=== PATIENT | male | born 1965 | race African-American/Black ===

== ENCOUNTER 2016-03-30 16:31 | Inpatient (IN) | payer OTHER ==
[~2016-03-30] VITALS: Ht 200.7 cm; Wt 101.8 kg
[~2016-03-30 16:31] MED LIST: AMITRIPTYLINE H25 MG PO; BUTALB-APAP-CA1 EACH PO; CARVEDILOL6.25 MG PO; DOCUSATE SODIU100 MG PO; DUONEB 2.5-0.5 M3 ML AEROSOL; GLUCOPHAGE500 MG PO; LANTUS 10100 UNITS/ SC; LEVEMIR100 UNIT/2 SC; LISINOPRIL5 MG PO; NOVOLIN N100 UNITS/ SC; NOVOLIN,HU100 UNITS1 SC; NOVOLOG 10100 UNITS/ SC; NOVOLOG PE100 UNITS/ SC; ONE-A-DAY ESSE1 EAC1 PO; OXYCODONE HCL5 MG PO; PRAVASTATIN SOD40 MG PO; ST. JOSEPH ASPI81 MG PO; TYLENOL EXTRA500 MG PO; Zeasorb Antifungal T TP
[2016-03-30 17:42] LABS: HEMATOCRIT 41.4 % (38.0-50.0); MCH 29.8 PG (29.0-34.0); MCHC 33.6 G/DL (30.0-36.0); MEAN PLAT.VOLUME 10.9 uM^3 (9.0-12.4); RBC DIS.WIDTH-SD 41.7 % (39-53); RED BLOOD COUNT 4.66 M/uL (4.00-5.50); WHITE BLOOD COUNT 7.5 K/uL (4.1-10.2)
[2016-03-30 17:43] LABS: MCV 88.8 FL (86-99); PLATELET COUNT 223 K/uL (156-360)
[2016-03-30 17:59] LABS: TROP-I INTERPRETATION NEGATIVE; TROPONIN-I 0.02 ng/mL (0.0-0.30)
[2016-03-30 18:05] LABS: CHLORIDE 106 mEq/L (99-109); POTASSIUM 4.7 mEq/L (3.7-5.4); SODIUM 141 mEq/L (136-147)
[2016-03-30 18:07] LABS: GLUCOSE 153 mg/dL (70-99)
[2016-03-30 18:08] LABS: ANION GAP 14 MEQ/L (2-14)
[2016-03-30 18:11] LABS: GFR ESTIMATE (CALCULATED) > 59 mL/min/
[2016-03-30 18:12] LABS: UREA NITROGEN (BUN) 17 mg/dL (9-23)
[2016-03-30] MEDS ORDERED: OMEPRAZOLE40 M1 PO (20:04)
[2016-03-30] MEDS ORDERED: MAALOX ADVANCE355 ML PO (20:05)
[2016-03-30] MEDS ORDERED: TUSSIN CHE100 MG/5 M PO (20:05)
[2016-03-30] MEDS ORDERED: ULTRAM50 MG PO (20:06)
[2016-03-30] MEDS ORDERED: GLUCOPHAGE1000 MG PO (20:07)
[2016-03-30] MEDS ORDERED: TANZEUM30 MG/0.5 SC (20:07)
[2016-03-30] MEDS ORDERED: ORAZINC220 MG PO (20:08)
[2016-03-30] MEDS ORDERED: C-500500 M1 PO (20:09)
[2016-03-30] MEDS ORDERED: ENTRESTO 24 MG1 EACH PO (20:09)
[2016-03-30] MEDS ORDERED: PRAVACHOL40 MG PO (20:10)
[2016-03-30] MEDS ORDERED: NOVOLOG 10100 UNITS/ SC (20:10)
[2016-03-30] MEDS ORDERED: FIORICET,ESG1 TABLET PO (20:11)
[2016-03-30] MEDS ORDERED: LEVEMIR100 UNIT/2 SC (20:13)
[2016-03-30] MEDS ORDERED: LAXATIVE5 M1 PO (20:13)
[2016-03-30] MEDS ORDERED: ASPIR 8181 M1 PO (20:14)
[2016-03-30] MEDS ORDERED: TRAZODONE HCL50 MG PO (20:15)
[2016-03-30] MEDS ORDERED: PAXIL20 MG PO (20:17)
[2016-03-30 23:50] VITALS: BP 111/82
[2016-03-31 02:23] LABS: ADD MIUA? YES; BILIRUBIN SMALL; BLOOD TRACE; COLOR DK YELLOW ((YELLOW)); GLUCOSE (STRIP) NEGATIVE; KETONES NEGATIVE; LEUKOCYTES SMALL; NITRITE NEGATIVE; PROTEIN (STRIP) 30
[2016-03-31 02:37] LABS: BACTERIA NONE SEEN; CASTS NONE SEEN /LPF; EPITHELIAL CELLS NONE SEEN; MUCUS NONE SEEN; RED BLOOD CELLS RARE /HPF (0-5); UCUL ADDED? NO; WHITE BLOOD CELLS RARE /HPF (0-5)
[2016-03-31 02:38] LABS: CRYSTALS NONE SEEN
[2016-03-31 02:44] LABS: SPECIFIC GRAVITY 1.071 (1.000-1.030)
[2016-03-31 04:00] VITALS: BP 119/73
[2016-03-31 07:49] VITALS: BP 135/98
[2016-03-31 08:25] LABS: INTERNAL CONTROL VALID? YES
[2016-03-31 08:49] LABS: EOSINOPHIL (%) 2.5 % (0-5); EOSINOPHIL COUNT 0.2 K/uL (0-0.3); HEMATOCRIT 37.7 % (38.0-50.0); IMMATURE GRANULOCYTE (%) 0.1 % (0.0-0.7); MCHC 32.9 G/DL (30.0-36.0); MCV 91.3 FL (86-99); MEAN PLAT.VOLUME 10.7 uM^3 (9.0-12.4); MONOCYTE (%) 11.1 % (3-12); MONOCYTE COUNT 0.8 K/uL (0-0.8); NEUTROPHIL (%) 72.1 % (45-76); NEUTROPHIL COUNT 5.4 K/uL (1.8-6.4); PLATELET COUNT 200 K/uL (156-360); RBC DIS.WIDTH-CV 13.1 % (11.8-14.6); RBC DIS.WIDTH-SD 43.6 % (39-53); RED BLOOD COUNT 4.13 M/uL (4.00-5.50); WHITE BLOOD COUNT 7.6 K/uL (4.1-10.2)
[2016-03-31 10:07] LABS: ANION GAP 11 MEQ/L (2-14); CHLORIDE 106 MEQ/L (99-109); POTASSIUM 4.5 MEQ/L (3.7-5.4); SAMPLE HEMOLYSIS CHECK 0; SAMPLE ICTERIC CHECK 0; SAMPLE LIPEMIA CHECK 0; SODIUM 140 MEQ/L (136-147); TOTAL BILIRUBIN 0.7 MG/DL (0.0-1.0)
[2016-03-31 10:12] LABS: ALKALINE PHOSPHATASE 94 IU/L (3-129); GFR ESTIMATE (CALCULATED) > 59 mL/min/; GLUCOSE 138 mg/dL (70-99); UREA NITROGEN (BUN) 15 mg/dL (9-23)
[2016-03-31 10:59] VITALS: BP 130/91
[2016-03-31 14:59] VITALS: BP 138/88
[2016-03-31 19:42] VITALS: BP 120/89
[2016-03-31 23:13] VITALS: BP 123/87
[2016-04-01 04:00] VITALS: BP 112/77
[2016-04-01 08:31] VITALS: BP 125/82
[2016-04-01 11:55] VITALS: BP 102/67
[2016-04-01 12:36] LABS: HEMATOCRIT 39.9 % (38.0-50.0); MCH 30.3 PG (29.0-34.0); MCHC 33.1 G/DL (30.0-36.0); MCV 91.5 FL (86-99); MEAN PLAT.VOLUME 11.5 uM^3 (9.0-12.4); PLATELET COUNT 234 K/uL (156-360); RBC DIS.WIDTH-CV 13.3 % (11.8-14.6); RBC DIS.WIDTH-SD 44.5 % (39-53); RED BLOOD COUNT 4.36 M/uL (4.00-5.50); WHITE BLOOD COUNT 6.7 K/uL (4.1-10.2)
[2016-04-01 13:02] LABS: ANION GAP 11 MEQ/L (2-14); CHLORIDE 107 MEQ/L (99-109); GFR ESTIMATE (CALCULATED) > 59 mL/min/; GLUCOSE 198 mg/dL (70-99); POTASSIUM 4.8 MEQ/L (3.7-5.4); SAMPLE HEMOLYSIS CHECK 0; SAMPLE ICTERIC CHECK 0; SAMPLE LIPEMIA CHECK 0; SODIUM 138 MEQ/L (136-147); UREA NITROGEN (BUN) 20 mg/dL (9-23)
[2016-04-01 16:10] VITALS: BP 93/65
[2016-04-01 20:00] VITALS: BP 93/74
[2016-04-01 21:21] LABS: POINT-OF-CARE METER ID UU14174225
[2016-04-01 23:30] VITALS: BP 104/66
[2016-04-02 04:00] VITALS: BP 96/59
[2016-04-02 08:12] VITALS: BP 94/62
[2016-04-02 09:20] LABS: POINT-OF-CARE METER ID UU14174225
[2016-04-02 11:17] LABS: HEMATOCRIT 39.2 % (38.0-50.0); MCHC 32.7 G/DL (30.0-36.0); MCV 91.8 FL (86-99); MEAN PLAT.VOLUME 11.1 uM^3 (9.0-12.4); PLATELET COUNT 211 K/uL (156-360); RBC DIS.WIDTH-CV 13.2 % (11.8-14.6); RBC DIS.WIDTH-SD 44.2 % (39-53); RED BLOOD COUNT 4.27 M/uL (4.00-5.50); WHITE BLOOD COUNT 6.8 K/uL (4.1-10.2)
[2016-04-02 12:06] LABS: ANION GAP 12 MEQ/L (2-14); CHLORIDE 109 MEQ/L (99-109); GFR ESTIMATE (CALCULATED) > 59 mL/min/; GLUCOSE 136 mg/dL (70-99); POTASSIUM 4.9 MEQ/L (3.7-5.4); SAMPLE HEMOLYSIS CHECK 0; SAMPLE ICTERIC CHECK 0; SAMPLE LIPEMIA CHECK 0; SODIUM 142 MEQ/L (136-147); UREA NITROGEN (BUN) 24 mg/dL (9-23)
[2016-04-02 12:49] VITALS: BP 96/63
[2016-04-02 16:00] VITALS: BP 108/68
[2016-04-02 20:21] VITALS: BP 109/65
[2016-04-02 21:46] LABS: POINT-OF-CARE METER ID UU14174225
[2016-04-03] VITALS (7 sets, daily range): BP systolic 97–117; BP diastolic 61–80
[2016-04-03 21:03] LABS: POINT-OF-CARE METER ID UU14174225
[2016-04-04 04:08] VITALS: BP 119/69
[2016-04-04 06:11] LABS: BICARBONATE 20.9 mEq/L (22-26); CARBOXY HGB 2.4 % (0-5); COMMENTS - BLOOD GASES A+C+; DEVICE NC; METHEMOGLOBIN 1.3 % (0-1.5); O2 FLOW 4 L/MIN; PCO2 37 mm Hg (35-45); PO2 70 mm Hg (80-100); SITE LR; TOTAL RESP RATE 20 resp/min; pH 7.36 (7.35-7.45)
[2016-04-04 06:40] LABS: HEMATOCRIT 39.4 % (38.0-50.0); MCH 30.4 PG (29.0-34.0); MCV 92.1 FL (86-99); MEAN PLAT.VOLUME 10.8 uM^3 (9.0-12.4); PLATELET COUNT 271 K/uL (156-360); RBC DIS.WIDTH-CV 13.1 % (11.8-14.6); RBC DIS.WIDTH-SD 43.9 % (39-53); RED BLOOD COUNT 4.28 M/uL (4.00-5.50); WHITE BLOOD COUNT 8.2 K/uL (4.1-10.2)
[2016-04-04 07:05] LABS: ANION GAP 6 MEQ/L (2-14); CHLORIDE 107 MEQ/L (99-109); GFR ESTIMATE (CALCULATED) > 59 mL/min/; GLUCOSE 166 mg/dL (70-99); POTASSIUM 4.2 MEQ/L (3.7-5.4); SAMPLE HEMOLYSIS CHECK 0; SAMPLE ICTERIC CHECK 0; SAMPLE LIPEMIA CHECK 0; SODIUM 140 MEQ/L (136-147); UREA NITROGEN (BUN) 22 mg/dL (9-23)
[2016-04-04 08:46] VITALS: BP 115/77
[2016-04-04 12:00] VITALS: BP 106/68
[2016-04-04 15:17] VITALS: BP 102/63
[2016-04-04 21:20] VITALS: BP 102/69
[2016-04-05] VITALS: BP 117/67
[2016-04-05 04:00] VITALS: BP 105/72
[2016-04-05 08:04] VITALS: BP 106/67
[2016-04-05 11:32] VITALS: BP 98/67
[2016-04-05 17:54] LABS: POINT-OF-CARE METER ID UU14174225
[2016-04-05 20:49] LABS: POINT-OF-CARE METER ID UU14174225
[2016-04-05 21:00] VITALS: BP 105/72
[2016-04-06 01:53] VITALS: BP 114/65
[2016-04-06 04:58] VITALS: BP 109/74
[2016-04-06 07:19] LABS: HEMATOCRIT 38.8 % (38.0-50.0); MCHC 32.7 G/DL (30.0-36.0); MCV 91.7 FL (86-99); MEAN PLAT.VOLUME 10.7 uM^3 (9.0-12.4); PLATELET COUNT 273 K/uL (156-360); RBC DIS.WIDTH-CV 13.4 % (11.8-14.6); RBC DIS.WIDTH-SD 44.1 % (39-53); RED BLOOD COUNT 4.23 M/uL (4.00-5.50); WHITE BLOOD COUNT 7.8 K/uL (4.1-10.2)
[2016-04-06 07:38] VITALS: BP 110/58
[2016-04-06 08:05] LABS: ANION GAP 9 MEQ/L (2-14); CHLORIDE 106 MEQ/L (99-109); GFR ESTIMATE (CALCULATED) > 59 mL/min/; GLUCOSE 134 mg/dL (70-99); POTASSIUM 4.4 MEQ/L (3.7-5.4); SAMPLE HEMOLYSIS CHECK 0; SAMPLE ICTERIC CHECK 0; SAMPLE LIPEMIA CHECK 0; SODIUM 141 MEQ/L (136-147); UREA NITROGEN (BUN) 16 mg/dL (9-23)
[2016-04-06] MEDS ORDERED: ELIQUIS5 MG PO (11:17)
[2016-04-06] MEDS ORDERED: BENADRYL25 MG PO (11:17)
[2016-04-06] MEDS ORDERED: FUROSEMIDE40 MG PO (11:17)
[2016-04-06] MEDS ORDERED: AMOX TR-K600 MG/5 M PO (11:17)
[2016-04-06] MEDS ORDERED: DUONEB 2.5-0.5 M3 ML AEROSOL (11:17)
[2016-04-06] MEDS ORDERED: METOCLOPRAMIDE10 MG PO (11:17)
[2016-04-06 11:37] VITALS: BP 107/64
[2016-04-06 15:54] VITALS: BP 98/67
[2016-04-06 20:00] VITALS: BP 108/76
[2016-04-07] VITALS (7 sets, daily range): BP systolic 94–114; BP diastolic 65–81
[2016-04-08] VITALS: BP 117/77
[2016-04-08 02:10] VITALS: BP 101/76
[2016-04-08 08:51] VITALS: BP 121/98
[2016-04-08 12:17] VITALS: BP 122/75
[2016-04-08 15:30] VITALS: BP 135/92
[2016-04-08 20:00] VITALS: BP 145/96
[2016-04-09] VITALS: BP 140/90
[2016-04-09 07:44] VITALS: BP 132/79
[2016-04-09 08:13] LABS: POINT-OF-CARE METER ID UU14174225
[2016-04-09 10:54] VITALS: BP 132/74
== END 2016-04-09 15:43 | disposition designated cancer center or children's hospital (05) | DRG 166 ==
LOC: EME → EDBD 16:31 → EME 16:31 → 5SOUTH 21:04 → EDOF 21:04 → 5SOUTH 23:18
PROVIDERS: Emergency Medicine; Family Medicine Sports Medicine; Hospitalist; Internal Medicine; Surgery
DX: I26.99 Other pulmonary embolism without acute cor pulmonale (principal); J18.9 Pneumonia, unspecified organism; I82.493 Acute embolism and thrombosis of other specified deep vein of lower extremity, bilateral; I82.443 Acute embolism and thrombosis of tibial vein, bilateral; I82.432 Acute embolism and thrombosis of left popliteal vein; I42.0 Dilated cardiomyopathy; I50.22 Chronic systolic (congestive) heart failure; I69.154 Hemiplegia and hemiparesis following nontraumatic intracerebral hemorrhage affecting left non-dominant side; R09.02 Hypoxemia; R11.2 Nausea with vomiting, unspecified; I12.9 Hypertensive chronic kidney disease with stage 1 through stage 4 chronic kidney disease, or unspecified chronic kidney disease; N18.3 Chronic kidney disease, stage 3 (moderate); I27.2 Other secondary pulmonary hypertension; E11.22 Type 2 diabetes mellitus with diabetic chronic kidney disease; E11.43 Type 2 diabetes mellitus with diabetic autonomic (poly)neuropathy; E78.5 Hyperlipidemia, unspecified; Y95 Nosocomial condition; E66.01 Morbid (severe) obesity due to excess calories; Z68.25 Body mass index [BMI] 25.0-25.9, adult; Z91.19 Patient's noncompliance with other medical treatment and regimen; Z86.711 Personal history of pulmonary embolism
CPT/HCPCS: 36600; 70450; 71010; 71020; 71275; 78264; 80048; 80053; 80202; 81003; 82565; 82803; 82948; 83880; 84484; 84520; 85025; 85027; 86850; 86900; 86901; 87040; 87070; 87205; 87449; 92526 GN; 93005; 93970; 94640 76; 94760; 94799; 97530 GO; 97530 GP; 99202; 99281; 99285; A9541; C1769; C1894; J0456; J0692; J1815; J2060; J2250; J2405; J3010; J3370; J7030; J7050

== ENCOUNTER 2016-04-10 09:55 | Emergency (ER) | payer OTHER ==
[~2016-04-10] VITALS: Ht 200.7 cm; Wt 151.4 kg
[~2016-04-10 09:55] MED LIST changes: +AMOX TR-K600 MG/5 M PO; +ASPIR 8181 M1 PO; +BENADRYL25 MG PO; +C-500500 M1 PO; +ELIQUIS5 MG PO; +ENTRESTO 24 MG1 EACH PO; +FIORICET,ESG1 TABLET PO; +FUROSEMIDE40 MG PO; +GLUCOPHAGE1000 MG PO; +LAXATIVE5 M1 PO; +MAALOX ADVANCE355 ML PO; +METOCLOPRAMIDE10 MG PO; +OMEPRAZOLE40 M1 PO; +ORAZINC220 MG PO; +PAXIL20 MG PO; +PRAVACHOL40 MG PO; +TANZEUM30 MG/0.5 SC; +TRAZODONE HCL50 MG PO; +TUSSIN CHE100 MG/5 M PO; +ULTRAM50 MG PO
[2016-04-10 10:40] LABS: MCHC 32.9 G/DL (30.0-36.0); MCV 91.1 FL (86-99); MEAN PLAT.VOLUME 10.3 uM^3 (9.0-12.4); PLATELET COUNT 257 K/uL (156-360); RBC DIS.WIDTH-CV 13.3 % (11.8-14.6); RED BLOOD COUNT 4.17 M/uL (4.00-5.50); WHITE BLOOD COUNT 12.2 K/uL (4.1-10.2)
[2016-04-10 10:48] LABS: INTER. NORMALIZED RATIO 1.6; PROTHROMBIN TIME 16.2 (9.2-11.2); PTT 37.6 (25-32)
[2016-04-10 10:56] LABS: CHLORIDE 109 mEq/L (99-109); POTASSIUM 4.3 mEq/L (3.7-5.4); SODIUM 143 mEq/L (136-147)
[2016-04-10 10:58] LABS: GLUCOSE 167 mg/dL (70-99)
[2016-04-10 10:59] LABS: ANION GAP 12 MEQ/L (2-14)
[2016-04-10 11:02] LABS: GFR ESTIMATE (CALCULATED) > 59 mL/min/
[2016-04-10 11:03] LABS: UREA NITROGEN (BUN) 16 mg/dL (9-23)
[2016-04-10 11:06] LABS: TROP-I INTERPRETATION NEGATIVE; TROPONIN-I < 0.01 ng/mL (0.0-0.30)
[2016-04-10 13:12] LABS: TROP-I INTERPRETATION NEGATIVE; TROPONIN-I < 0.01 ng/mL (0.0-0.30)
[2016-04-10 14:34] VITALS: BP 98/58
== END 2016-04-10 14:36 ==
LOC: EME → EDBD 09:55 → EME 09:55
PROVIDERS: Emergency Medicine
DX: R07.9 Chest pain, unspecified (principal); I26.99 Other pulmonary embolism without acute cor pulmonale; E11.9 Type 2 diabetes mellitus without complications; I10 Essential (primary) hypertension; I69.398 Other sequelae of cerebral infarction; Z79.4 Long term (current) use of insulin; Z79.84 Long term (current) use of oral hypoglycemic drugs; Z79.82 Long term (current) use of aspirin
CPT/HCPCS: 71010; 80048; 83880; 84484; 85027; 85610; 85730; 93005; 99281; 99285; J7030

== ENCOUNTER 2016-04-12 11:13 | Emergency (ER) | payer OTHER ==
[~2016-04-12] VITALS: Ht 200.7 cm; Wt 149.3 kg
[2016-04-12 14:12] LABS: EOSINOPHIL (%) 4.4 % (0-5); EOSINOPHIL COUNT 0.3 K/uL (0-0.3); HEMATOCRIT 40.3 % (38.0-50.0); IMMATURE GRANULOCYTE (%) 0.1 % (0.0-0.7); IMMATURE GRANULOCYTE COUNT 0.1 K/uL; LYMPHOCYTE COUNT 1.4 K/uL (1.0-2.8); MCH 29.8 PG (29.0-34.0); MCV 90.2 FL (86-99); MEAN PLAT.VOLUME 10.1 uM^3 (9.0-12.4); MONOCYTE (%) 7.5 % (3-12); MONOCYTE COUNT 0.5 K/uL (0-0.8); NEUTROPHIL (%) 67.8 % (45-76); NEUTROPHIL COUNT 4.8 K/uL (1.8-6.4); PLATELET COUNT 234 K/uL (156-360); RBC DIS.WIDTH-CV 13.5 % (11.8-14.6); RBC DIS.WIDTH-SD 43.2 % (39-53); RED BLOOD COUNT 4.47 M/uL (4.00-5.50)
[2016-04-12 14:18] LABS: CHLORIDE 108 mEq/L (99-109); POTASSIUM 4.3 mEq/L (3.7-5.4); SODIUM 143 mEq/L (136-147)
[2016-04-12 14:19] LABS: GLUCOSE 149 mg/dL (70-99); INTER. NORMALIZED RATIO 1.4; PROTHROMBIN TIME 14.7 (9.2-11.2); PTT 36.9 (25-32)
[2016-04-12 14:21] LABS: ANION GAP 9 MEQ/L (2-14)
[2016-04-12 14:23] LABS: GFR ESTIMATE (CALCULATED) > 59 mL/min/
[2016-04-12 14:24] LABS: UREA NITROGEN (BUN) 14 mg/dL (9-23)
[2016-04-12 14:25] LABS: WHITE BLOOD COUNT 7.1 K/uL (4.1-10.2)
[2016-04-12 14:30] LABS: TROP-I INTERPRETATION NEGATIVE; TROPONIN-I < 0.01 ng/mL (0.0-0.30)
[2016-04-12 16:39] VITALS: BP 123/85
== END 2016-04-12 16:44 | disposition designated cancer center or children's hospital (05) ==
LOC: EME 11:13
PROVIDERS: Emergency Medicine
DX: R07.89 Other chest pain (principal); R20.8 Other disturbances of skin sensation; E11.9 Type 2 diabetes mellitus without complications; I10 Essential (primary) hypertension; I69.354 Hemiplegia and hemiparesis following cerebral infarction affecting left non-dominant side; Z86.73 Personal history of transient ischemic attack (TIA), and cerebral infarction without residual deficits; Z86.711 Personal history of pulmonary embolism
CPT/HCPCS: 71010; 80048; 84484; 85025; 85610; 85730; 93005; 93926; 99281; 99285

== ENCOUNTER → 2016-05-05 | Outpatient (CLI) | payer OTHER ==
[~2016-05-05] MED LIST changes: +ACETAMINOPHEN325 M3 PO; +AMBIEN CR12.5 MG PO; +GLUCAGON1 MG IM; +KLOR-CON SPRIN10 MEQ PO; +LO-DOSE ASPIRIN81 M2 PO; +NEURONTIN100 MG PO; +ZOFRAN4 MG PO; +ZOLOFT50 MG PO
== END | disposition home or self-care (01) ==
LOC: AMB 10:30
DX: I42.0 Dilated cardiomyopathy (principal); E11.9 Type 2 diabetes mellitus without complications; E78.5 Hyperlipidemia, unspecified; Z86.73 Personal history of transient ischemic attack (TIA), and cerebral infarction without residual deficits
CPT/HCPCS: 99212

== ENCOUNTER 2016-05-11 10:07 | Inpatient (IN) | payer OTHER ==
[~2016-05-11] VITALS: Ht 200.7 cm; Wt 166.3 kg
[2016-05-11 11:55] LABS: CHLORIDE 105 mEq/L (99-109); INTER. NORMALIZED RATIO 1.4; POTASSIUM 4.8 mEq/L (3.7-5.4); PTT 38.5 (25-32); SODIUM 136 mEq/L (136-147)
[2016-05-11 11:56] LABS: GLUCOSE 103 mg/dL (70-99)
[2016-05-11 11:58] LABS: ANION GAP 10 MEQ/L (2-14); EOSINOPHIL (%) 6.8 % (0-5); EOSINOPHIL COUNT 0.3 K/uL (0-0.3); HEMATOCRIT 38.8 % (38.0-50.0); LYMPHOCYTE COUNT 1.3 K/uL (1.0-2.8); MCH 29.3 PG (29.0-34.0); MCHC 32.7 G/DL (30.0-36.0); MCV 89.4 FL (86-99); MEAN PLAT.VOLUME 10.6 uM^3 (9.0-12.4); MONOCYTE (%) 14.6 % (3-12); MONOCYTE COUNT 0.6 K/uL (0-0.8); NEUTROPHIL COUNT 1.8 K/uL (1.8-6.4); PLATELET COUNT 262 K/uL (156-360); RBC DIS.WIDTH-CV 14.8 % (11.8-14.6); RBC DIS.WIDTH-SD 47.2 % (39-53); RED BLOOD COUNT 4.34 M/uL (4.00-5.50)
[2016-05-11 12:00] LABS: GFR ESTIMATE (CALCULATED) > 59 mL/min/
[2016-05-11 12:01] LABS: UREA NITROGEN (BUN) 20 mg/dL (9-23)
[2016-05-11 12:08] LABS: TROP-I INTERPRETATION NEGATIVE; TROPONIN-I 0.02 ng/mL (0.0-0.30)
[2016-05-11] MEDS ORDERED: CARVEDILOL3.125 MG PO (13:37)
[2016-05-11] MEDS ORDERED: BACTRIM,SEPT1 TABLET PO (13:38)
[2016-05-11] MEDS ORDERED: LASIX20 MG PO (13:40)
[2016-05-11] MEDS ORDERED: MUCUS RELIEF200 MG PO (13:45)
[2016-05-11] MEDS ORDERED: REGLAN10 MG PO (13:46)
[2016-05-11] MEDS ORDERED: OMEPRAZOLE20 MG PO (13:47)
[2016-05-11] MEDS ORDERED: ESGIC 50-325-41 EAC1 PO (14:02)
[2016-05-11] MEDS ORDERED: LAXATIVE5 MG PO (14:04)
[2016-05-11] MEDS ORDERED: TANZEUM30 MG/0.5 SC (14:07)
[2016-05-11] MEDS ORDERED: K-SOL20 MEQ/15 PO (14:11)
[2016-05-11] MEDS ORDERED: ASPIRIN81 M2 PO (14:13)
[2016-05-11] MEDS ORDERED: AQUAPHOR OINTM105 GM TP (14:22)
[2016-05-11 17:50] VITALS: BP 98/66
[2016-05-11 18:26] LABS: POINT-OF-CARE METER ID UU13113807
[2016-05-11 19:04] LABS: TROP-I INTERPRETATION NEGATIVE; TROPONIN-I 0.01 ng/mL (0.0-0.30)
[2016-05-11 20:30] VITALS: BP 102/66
[2016-05-11 20:32] LABS: INFLUENZA A VIRAL ANTIGEN NEGATIVE; INFLUENZA B VIRAL ANTIGEN NEGATIVE
[2016-05-11 22:03] LABS: POINT-OF-CARE METER ID UU13113807
[2016-05-11 23:30] VITALS: BP 110/64
[2016-05-12 04:25] VITALS: BP 106/62
[2016-05-12 08:00] VITALS: BP 90/55
[2016-05-12 08:42] LABS: POINT-OF-CARE METER ID UU13113807
[2016-05-12 11:52] VITALS: BP 106/77
[2016-05-12 14:12] LABS: POINT-OF-CARE METER ID UU13113807
[2016-05-12 16:36] VITALS: BP 86/57
[2016-05-12 17:07] LABS: POINT-OF-CARE METER ID UU14149398
[2016-05-12 20:12] VITALS: BP 97/67
[2016-05-12 21:56] LABS: POINT-OF-CARE METER ID UU14149398
[2016-05-13 01:25] VITALS: BP 92/67
[2016-05-13 04:24] VITALS: BP 100/78
[2016-05-13 07:09] LABS: INTERNAL CONTROL VALID? YES
[2016-05-13 11:16] LABS: TYPE OF FLUID PLEURAL
[2016-05-13 12:08] LABS: BODY FLUID RBC'S 26 /MM^3 (0-100); BODY FLUID WBC'S 499 /MM^3 (0-500); RED CELL DILUTION 1; WBC DILUTION 1; WHITE CELL RAW COUNT 399
[2016-05-13 12:25] LABS: BODY FLUID LDH 59 IU/L; BODY FLUID PROTEIN < 3.0 G/DL
[2016-05-13 12:54] LABS: BODY FLUID EOSINOPHILS 0 % (0-25); MONO RAW COUNT 71; MONONUCLEAR WBC'S 71 %; POLY RAW COUNT 29; POLYNUCLEAR WBC'S 29 % (0-25)
[2016-05-13 16:34] LABS: POINT-OF-CARE METER ID UU13113807
[2016-05-13 20:19] VITALS: BP 113/73
[2016-05-14] VITALS (7 sets, daily range): BP systolic 80–97; BP diastolic 50–69
[2016-05-14 02:09] LABS: POINT-OF-CARE METER ID UU13113807; POINT-OF-CARE USER ID 608261316
[2016-05-14 07:40] LABS: POINT-OF-CARE METER ID UU14149396
[2016-05-14 11:59] LABS: POINT-OF-CARE METER ID UU14149396
[2016-05-14 17:12] LABS: POINT-OF-CARE METER ID UU14149396
[2016-05-14 21:06] LABS: POINT-OF-CARE METER ID UU14149396
[2016-05-15] VITALS (7 sets, daily range): BP systolic 82–119; BP diastolic 54–66
[2016-05-15 08:17] LABS: POINT-OF-CARE METER ID UU14149398
[2016-05-15 10:44] LABS: EOSINOPHIL (%) 5.3 % (0-5); EOSINOPHIL COUNT 0.2 K/uL (0-0.3); HEMATOCRIT 36.5 % (38.0-50.0); IMMATURE GRANULOCYTE (%) 0.3 % (0.0-0.7); LYMPHOCYTE COUNT 1.7 K/uL (1.0-2.8); MCH 30.9 PG (29.0-34.0); MCHC 35.6 G/DL (30.0-36.0); MCV 86.7 FL (86-99); MEAN PLAT.VOLUME 11.2 uM^3 (9.0-12.4); MONOCYTE (%) 14.4 % (3-12); MONOCYTE COUNT 0.6 K/uL (0-0.8); NEUTROPHIL (%) 36.2 % (45-76); NEUTROPHIL COUNT 1.4 K/uL (1.8-6.4); PLATELET COUNT 195 K/uL (156-360); RBC DIS.WIDTH-CV 14.9 % (11.8-14.6); RBC DIS.WIDTH-SD 46.6 % (39-53); RED BLOOD COUNT 4.21 M/uL (4.00-5.50)
[2016-05-15 11:10] LABS: ANION GAP 9 MEQ/L (2-14); CHLORIDE 106 MEQ/L (99-109); GFR ESTIMATE (CALCULATED) > 59 mL/min/; GLUCOSE 130 mg/dL (70-99); MAGNESIUM 1.4 mg/dl (1.3-2.7); POTASSIUM 4.3 MEQ/L (3.7-5.4); SAMPLE HEMOLYSIS CHECK 0; SAMPLE ICTERIC CHECK 0; SAMPLE LIPEMIA CHECK 0; SODIUM 135 MEQ/L (136-147); UREA NITROGEN (BUN) 17 mg/dL (9-23)
[2016-05-15 12:28] LABS: POINT-OF-CARE METER ID UU14149398
[2016-05-15 16:31] LABS: POINT-OF-CARE METER ID UU14149396
[2016-05-16 03:20] VITALS: BP 93/66
[2016-05-16 08:05] VITALS: BP 91/63
[2016-05-16 08:11] LABS: POINT-OF-CARE METER ID UU13113807
[2016-05-16 12:00] VITALS: BP 91/61
[2016-05-16 12:14] LABS: POINT-OF-CARE METER ID UU13113807
[2016-05-16 15:50] VITALS: BP 82/58
[2016-05-16 16:11] VITALS: BP 87/62
[2016-05-16 17:01] LABS: POINT-OF-CARE METER ID UU13113807
[2016-05-16 20:30] VITALS: BP 90/65
[2016-05-17] VITALS (7 sets, daily range): BP systolic 76–112; BP diastolic 55–86
[2016-05-17 07:59] LABS: POINT-OF-CARE METER ID UU13113807
[2016-05-17 08:52] LABS: HEMATOCRIT 40.8 % (38.0-50.0); MCH 28.9 PG (29.0-34.0); MCHC 33.1 G/DL (30.0-36.0); MCV 87.4 FL (86-99); MEAN PLAT.VOLUME 10.8 uM^3 (9.0-12.4); PLATELET COUNT 198 K/uL (156-360); RBC DIS.WIDTH-SD 47.1 % (39-53); RED BLOOD COUNT 4.67 M/uL (4.00-5.50); WHITE BLOOD COUNT 4.3 K/uL (4.1-10.2)
[2016-05-17 09:07] LABS: CHLORIDE 108 mEq/L (99-109); POTASSIUM 4.8 mEq/L (3.7-5.4); SODIUM 135 mEq/L (136-147)
[2016-05-17 09:09] LABS: GLUCOSE 114 mg/dL (70-99)
[2016-05-17 09:10] LABS: ANION GAP 9 MEQ/L (2-14)
[2016-05-17 09:11] LABS: TOTAL BILIRUBIN 0.6 mg/dL (0.0-1.0)
[2016-05-17 09:13] LABS: ALKALINE PHOSPHATASE 108 IU/L (3-129); GFR ESTIMATE (CALCULATED) > 59 mL/min/
[2016-05-17 09:14] LABS: UREA NITROGEN (BUN) 17 mg/dL (9-23)
[2016-05-17 12:13] LABS: POINT-OF-CARE METER ID UU13113807
[2016-05-17 15:25] LABS: BODY FLUID PH 7.8 (())
[2016-05-17 16:57] LABS: POINT-OF-CARE METER ID UU13113807
[2016-05-17 21:40] LABS: POINT-OF-CARE METER ID UU13113807
[2016-05-18] VITALS: BP 111/71
[2016-05-18 04:02] VITALS: BP 98/68
[2016-05-18 07:49] VITALS: BP 106/67
[2016-05-18 09:20] LABS: POINT-OF-CARE METER ID UU13113807; POINT-OF-CARE USER ID 606021404
[2016-05-18 10:37] LABS: HEMATOCRIT 39.5 % (38.0-50.0); MCH 29.9 PG (29.0-34.0); MCHC 33.7 G/DL (30.0-36.0); MCV 88.8 FL (86-99); MEAN PLAT.VOLUME 11.4 uM^3 (9.0-12.4); PLATELET COUNT 193 K/uL (156-360); RBC DIS.WIDTH-CV 15.2 % (11.8-14.6); RBC DIS.WIDTH-SD 48.6 % (39-53); RED BLOOD COUNT 4.45 M/uL (4.00-5.50); WHITE BLOOD COUNT 4.6 K/uL (4.1-10.2)
[2016-05-18 11:05] LABS: ANION GAP 9 MEQ/L (2-14); CHLORIDE 105 MEQ/L (99-109); GFR ESTIMATE (CALCULATED) > 59 mL/min/; GLUCOSE 125 mg/dL (70-99); POTASSIUM 3.9 MEQ/L (3.7-5.4); SAMPLE HEMOLYSIS CHECK 0; SAMPLE ICTERIC CHECK 0; SAMPLE LIPEMIA CHECK 0; SODIUM 137 MEQ/L (136-147); UREA NITROGEN (BUN) 15 mg/dL (9-23)
[2016-05-18 12:52] VITALS: BP 126/61
[2016-05-18 13:13] LABS: POINT-OF-CARE METER ID UU13113807; POINT-OF-CARE USER ID 606021404
[2016-05-18 15:50] VITALS: BP 99/68
[2016-05-18 17:13] LABS: POINT-OF-CARE METER ID UU13113807; POINT-OF-CARE USER ID 606021404
[2016-05-18 20:00] VITALS: BP 94/61
[2016-05-18 21:53] LABS: POINT-OF-CARE METER ID UU13113807
[2016-05-19] VITALS (7 sets, daily range): BP systolic 95–113; BP diastolic 53–72
[2016-05-19 11:47] LABS: POINT-OF-CARE METER ID UU13113807
[2016-05-19 17:15] LABS: POINT-OF-CARE METER ID UU13113807
[2016-05-19 21:50] LABS: POINT-OF-CARE METER ID UU13113807; POINT-OF-CARE USER ID 608261316
[2016-05-20 05:00] VITALS: BP 93/59
[2016-05-20 09:37] LABS: POINT-OF-CARE METER ID UU14149398
[2016-05-20 16:36] LABS: POINT-OF-CARE METER ID UU13113807
[2016-05-20 16:37] VITALS: BP 108/71
[2016-05-20 18:23] VITALS: BP 105/67
[2016-05-21] VITALS: BP 111/68
[2016-05-21 07:28] LABS: POINT-OF-CARE METER ID UU14188625
[2016-05-21 07:42] VITALS: BP 109/67
[2016-05-21 10:53] LABS: POINT-OF-CARE METER ID UU14188625
[2016-05-21 10:55] VITALS: BP 126/82
[2016-05-21] MEDS ORDERED: LASIX20 MG PO ×2 (12:07→12:22)
[2016-05-21 14:50] VITALS: BP 105/71
[2016-05-21 16:25] LABS: POINT-OF-CARE METER ID UU14188625
[2016-05-21 19:30] VITALS: BP 91/74
[2016-05-21 23:49] VITALS: BP 118/60
[2016-05-22 03:53] VITALS: BP 129/58
[2016-05-22 07:31] VITALS: BP 117/74
[2016-05-22 10:51] VITALS: BP 105/71
[2016-05-22 20:14] VITALS: BP 106/74
[2016-05-23] VITALS: BP 109/75
[2016-05-23 04:00] VITALS: BP 100/70
[2016-05-23 07:50] VITALS: BP 99/65
[2016-05-23 15:07] VITALS: BP 113/75
[2016-05-23 20:00] VITALS: BP 126/79
[2016-05-23 22:42] LABS: POINT-OF-CARE METER ID UU14174225
[2016-05-24] VITALS: BP 110/88
[2016-05-24 03:40] VITALS: BP 138/94
[2016-05-24 07:56] VITALS: BP 123/89
[2016-05-24 08:03] LABS: POINT-OF-CARE METER ID UU14174225
[2016-05-24 16:13] VITALS: BP 102/65
[2016-05-25 00:06] VITALS: BP 107/75
[2016-05-25 03:53] VITALS: BP 107/75
[2016-05-25 08:03] VITALS: BP 110/69
[2016-05-25 15:00] VITALS: BP 103/74
[2016-05-25 23:33] VITALS: BP 105/75
[2016-05-26 15:08] VITALS: BP 117/84
[2016-05-26 16:48] LABS: POINT-OF-CARE METER ID UU14174225
[2016-05-26 22:00] LABS: POINT-OF-CARE METER ID UU14174225
[2016-05-27 00:37] VITALS: BP 105/74
[2016-05-27 07:51] VITALS: BP 91/68
[2016-05-27 15:33] VITALS: BP 103/76
[2016-05-27 22:57] VITALS: BP 109/79
[2016-05-28 08:00] VITALS: BP 106/75
[2016-05-28 09:02] LABS: POINT-OF-CARE METER ID UU14174225
[2016-05-28 11:00] VITALS: BP 101/75
[2016-05-28 15:45] VITALS: BP 106/82
[2016-05-28 19:17] VITALS: BP 123/73
[2016-05-28 23:49] VITALS: BP 95/64
[2016-05-29 07:53] VITALS: BP 104/72
[2016-05-31 01:56] VITALS: BP 132/71
[2016-05-31 07:20] VITALS: BP 135/77
[2016-05-31 16:28] VITALS: BP 116/77
[2016-06-01 00:07] VITALS: BP 136/82
[2016-06-01 00:08] VITALS: BP 115/56
[2016-06-01 08:13] VITALS: BP 122/83
[2016-06-01 17:32] VITALS: BP 105/76
[2016-06-02] VITALS: BP 100/76
[2016-06-02 08:20] VITALS: BP 116/79
[2016-06-02 11:41] LABS: POINT-OF-CARE METER ID UU14174225
[2016-06-02 11:51] LABS: BASOPHIL COUNT 0.1 K/uL (0-0.1); EOSINOPHIL (%) 6.4 % (0-5); EOSINOPHIL COUNT 0.3 K/uL (0-0.3); HEMATOCRIT 41.6 % (38.0-50.0); INSTRUMENT ABS NEUTROPHIL CT 2.6 K/uL; LYMPHOCYTE COUNT 1.7 K/uL (1.0-2.8); MCH 29.6 PG (29.0-34.0); MCHC 32.7 G/DL (30.0-36.0); MCV 90.4 FL (86-99); MEAN PLAT.VOLUME 10.5 uM^3 (9.0-12.4); MONOCYTE COUNT 0.6 K/uL (0-0.8); NEUTROPHIL (%) 48.8 % (45-76); NEUTROPHIL COUNT 2.6 K/uL (1.8-6.4); PLATELET COUNT 218 K/uL (156-360); RBC DIS.WIDTH-CV 16.8 % (11.8-14.6); RBC DIS.WIDTH-SD 54.8 % (39-53); WHITE BLOOD COUNT 5.3 K/uL (4.1-10.2)
[2016-06-02 12:15] LABS: ANION GAP 13 MEQ/L (2-14); CHLORIDE 102 MEQ/L (99-109); GFR ESTIMATE (CALCULATED) > 59 mL/min/; GLUCOSE 108 mg/dL (70-99); SAMPLE HEMOLYSIS CHECK 0; SAMPLE ICTERIC CHECK 0; SAMPLE LIPEMIA CHECK 0; SODIUM 138 MEQ/L (136-147); UREA NITROGEN (BUN) 16 mg/dL (9-23)
[2016-06-02 15:55] VITALS: BP 110/69
[2016-06-02 17:51] LABS: POINT-OF-CARE METER ID UU14174225
[2016-06-03 00:25] VITALS: BP 116/89
[2016-06-03 07:34] VITALS: BP 106/74
[2016-06-03 18:20] LABS: POINT-OF-CARE METER ID UU14174225
[2016-06-04 07:48] VITALS: BP 108/78
[2016-06-04 08:03] LABS: POINT-OF-CARE USER ID 606021404
[2016-06-04 12:08] LABS: POINT-OF-CARE USER ID 606021404
[2016-06-04 15:10] VITALS: BP 116/83
[2016-06-05 08:43] VITALS: BP 136/78
[2016-06-05 09:11] LABS: POINT-OF-CARE METER ID UU14174225
[2016-06-05 16:06] VITALS: BP 113/85
[2016-06-05 23:53] VITALS: BP 116/83
[2016-06-06 17:05] LABS: POINT-OF-CARE METER ID UU14174225
[2016-06-07 00:19] VITALS: BP 116/89
[2016-06-07 23:04] VITALS: BP 122/58
[2016-06-08 07:42] LABS: POINT-OF-CARE METER ID UU14188625
[2016-06-08 07:51] VITALS: BP 135/87
[2016-06-08 15:33] VITALS: BP 109/56
[2016-06-08 17:08] LABS: HEMATOCRIT 48.9 % (38.0-50.0); MCHC 32.1 G/DL (30.0-36.0); MCV 90.2 FL (86-99); MEAN PLAT.VOLUME 10.4 uM^3 (9.0-12.4); PLATELET COUNT 228 K/uL (156-360); RBC DIS.WIDTH-CV 17.7 % (11.8-14.6); RBC DIS.WIDTH-SD 55.6 % (39-53); RED BLOOD COUNT 5.42 M/uL (4.00-5.50); WHITE BLOOD COUNT 3.9 K/uL (4.1-10.2)
[2016-06-08 17:14] LABS: CHLORIDE 102 mEq/L (99-109); POTASSIUM 4.7 mEq/L (3.7-5.4); SODIUM 139 mEq/L (136-147)
[2016-06-08 17:16] LABS: GLUCOSE 133 mg/dL (70-99)
[2016-06-08 17:17] LABS: ANION GAP 14 MEQ/L (2-14)
[2016-06-08 17:18] LABS: TOTAL BILIRUBIN 2.5 mg/dL (0.0-1.0)
[2016-06-08 17:19] LABS: ALKALINE PHOSPHATASE 363 IU/L (3-129)
[2016-06-08 17:20] LABS: GFR ESTIMATE (CALCULATED) > 59 mL/min/
[2016-06-08 17:21] LABS: UREA NITROGEN (BUN) 23 mg/dL (9-23)
[2016-06-08 17:23] LABS: LIPASE 42 U/L (1.0-51.0)
[2016-06-09 12:02] LABS: POINT-OF-CARE METER ID UU14174225
[2016-06-10 08:05] VITALS: BP 97/73
[2016-06-10 09:56] LABS: EOSINOPHIL (%) 0 % (0-5); HEMATOCRIT 41.8 % (38.0-50.0); IMMATURE GRANULOCYTE (%) 0.6 % (0.0-0.7); IMMATURE GRANULOCYTE COUNT 0.1 K/uL; INSTRUMENT ABS NEUTROPHIL CT 17.4 K/uL; LYMPHOCYTE COUNT 1.5 K/uL (1.0-2.8); MCH 29.4 PG (29.0-34.0); MCV 89.1 FL (86-99); MONOCYTE (%) 4.8 % (3-12); NEUTROPHIL COUNT 17.4 K/uL (1.8-6.4); PLATELET COUNT 196 K/uL (156-360); RBC DIS.WIDTH-CV 17.6 % (11.8-14.6); RBC DIS.WIDTH-SD 56.1 % (39-53); RED BLOOD COUNT 4.69 M/uL (4.00-5.50); WHITE BLOOD COUNT 19.9 K/uL (4.1-10.2)
[2016-06-10 10:16] LABS: ANION GAP 24 MEQ/L (2-14); CHLORIDE 101 MEQ/L (99-109); GFR ESTIMATE (CALCULATED) 55 mL/min/; GLUCOSE 141 mg/dL (70-99); POTASSIUM 4.6 MEQ/L (3.7-5.4); SAMPLE HEMOLYSIS CHECK 0; SAMPLE ICTERIC CHECK 1; SAMPLE LIPEMIA CHECK 0; SODIUM 142 MEQ/L (136-147); UREA NITROGEN (BUN) 30 mg/dL (9-23)
[2016-06-10 14:51] VITALS: BP 139/71
[2016-06-10 17:18] LABS: POINT-OF-CARE USER ID STWAMT
[2016-06-10 23:15] VITALS: BP 107/61
[2016-06-11 08:00] VITALS: BP 99/76
[2016-06-11 08:36] LABS: ANION GAP 15 MEQ/L (2-14); CHLORIDE 100 MEQ/L (99-109); GFR ESTIMATE (CALCULATED) 52 mL/min/; GLUCOSE 132 mg/dL (70-99); SAMPLE HEMOLYSIS CHECK 1; SAMPLE ICTERIC CHECK 0; SAMPLE LIPEMIA CHECK 0; SODIUM 140 MEQ/L (136-147); UREA NITROGEN (BUN) 36 mg/dL (9-23)
[2016-06-11 08:39] LABS: EOSINOPHIL (%) 0.2 % (0-5); HEMATOCRIT 41.5 % (38.0-50.0); IMMATURE GRANULOCYTE (%) 0.3 % (0.0-0.7); INSTRUMENT ABS NEUTROPHIL CT 7.6 K/uL; LYMPHOCYTE COUNT 1.8 K/uL (1.0-2.8); MCH 28.8 PG (29.0-34.0); MCHC 32.5 G/DL (30.0-36.0); MCV 88.5 FL (86-99); MEAN PLAT.VOLUME 10.5 uM^3 (9.0-12.4); MONOCYTE (%) 6.9 % (3-12); MONOCYTE COUNT 0.7 K/uL (0-0.8); NEUTROPHIL (%) 74.4 % (45-76); NEUTROPHIL COUNT 7.6 K/uL (1.8-6.4); PLATELET COUNT 229 K/uL (156-360); RBC DIS.WIDTH-CV 17.3 % (11.8-14.6); RBC DIS.WIDTH-SD 54.6 % (39-53); RED BLOOD COUNT 4.69 M/uL (4.00-5.50)
[2016-06-11 08:41] LABS: WHITE BLOOD COUNT 10.1 K/uL (4.1-10.2)
[2016-06-11 13:18] LABS: C DIFF TOXIN POSITIVE (NEGATIVE)
[2016-06-11 13:19] LABS: PROBE CHECK PASS
[2016-06-11 15:25] VITALS: BP 110/74
[2016-06-11 23:07] VITALS: BP 135/80
[2016-06-12 08:08] VITALS: BP 143/72
[2016-06-12 11:30] LABS: POINT-OF-CARE METER ID UU14174225
[2016-06-12 17:13] LABS: POINT-OF-CARE METER ID UU14174225
[2016-06-12 17:44] VITALS: BP 146/74
[2016-06-12 18:25] LABS: ANION GAP 17 MEQ/L (2-14); CHLORIDE 98 MEQ/L (99-109); GFR ESTIMATE (CALCULATED) 46 mL/min/; GLUCOSE 134 mg/dL (70-99); SAMPLE HEMOLYSIS CHECK 1; SAMPLE ICTERIC CHECK 1; SAMPLE LIPEMIA CHECK 0; SODIUM 137 MEQ/L (136-147); UREA NITROGEN (BUN) 42 mg/dL (9-23)
[2016-06-12 18:26] LABS: POTASSIUM 4.4 MEQ/L (3.7-5.4)
[2016-06-13 01:48] VITALS: BP 110/83
[2016-06-13 07:52] VITALS: BP 146/74
[2016-06-13 11:32] LABS: POINT-OF-CARE METER ID UU14174225
[2016-06-13 16:04] LABS: POINT-OF-CARE METER ID UU14174225
[2016-06-13 16:23] VITALS: BP 142/74
[2016-06-13 16:44] LABS: EOSINOPHIL (%) 0.9 % (0-5); EOSINOPHIL COUNT 0.1 K/uL (0-0.3); HEMATOCRIT 38.4 % (38.0-50.0); IMMATURE GRANULOCYTE (%) 0.5 % (0.0-0.7); INSTRUMENT ABS NEUTROPHIL CT 5.7 K/uL; LYMPHOCYTE COUNT 1.3 K/uL (1.0-2.8); MCH 29.1 PG (29.0-34.0); MCHC 33.9 G/DL (30.0-36.0); MCV 85.9 FL (86-99); MEAN PLAT.VOLUME 11.1 uM^3 (9.0-12.4); MONOCYTE (%) 8.6 % (3-12); MONOCYTE COUNT 0.7 K/uL (0-0.8); NEUTROPHIL (%) 72.7 % (45-76); NEUTROPHIL COUNT 5.7 K/uL (1.8-6.4); PLATELET COUNT 200 K/uL (156-360); RBC DIS.WIDTH-CV 16.9 % (11.8-14.6); RED BLOOD COUNT 4.47 M/uL (4.00-5.50); WHITE BLOOD COUNT 7.8 K/uL (4.1-10.2)
[2016-06-13 17:35] LABS: ANION GAP 15 MEQ/L (2-14); CHLORIDE 102 MEQ/L (99-109); SAMPLE HEMOLYSIS CHECK 1; SAMPLE ICTERIC CHECK 1; SAMPLE LIPEMIA CHECK 0; SODIUM 138 MEQ/L (136-147)
[2016-06-13 17:40] LABS: GFR ESTIMATE (CALCULATED) 41 mL/min/; GLUCOSE 113 mg/dL (70-99); UREA NITROGEN (BUN) 47 mg/dL (9-23)
[2016-06-13 17:43] LABS: POTASSIUM 4.5 MEQ/L (3.7-5.4)
[2016-06-14 00:06] VITALS: BP 133/71
[2016-06-14 08:00] VITALS: BP 115/79
[2016-06-14 10:21] LABS: URIC ACID 13.5 mg/dL (3.1-9.2)
[2016-06-14 12:57] LABS: ANION GAP 20 MEQ/L (2-14); CHLORIDE 103 MEQ/L (99-109); SODIUM 140 MEQ/L (136-147)
[2016-06-14 13:03] LABS: GFR ESTIMATE (CALCULATED) 35 mL/min/; GLUCOSE 98 mg/dL (70-99); POTASSIUM 4.6 MEQ/L (3.7-5.4); UREA NITROGEN (BUN) 51 mg/dL (9-23)
[2016-06-14 15:12] VITALS: BP 120/60
[2016-06-14 23:12] VITALS: BP 85/64
[2016-06-15 11:11] LABS: ANION GAP 16 MEQ/L (2-14); CHLORIDE 100 MEQ/L (99-109); GFR ESTIMATE (CALCULATED) 29 mL/min/; GLUCOSE 56 mg/dL (70-99); POTASSIUM 5.1 MEQ/L (3.7-5.4); SAMPLE HEMOLYSIS CHECK 2; SAMPLE ICTERIC CHECK 1; SAMPLE LIPEMIA CHECK 0; SODIUM 138 MEQ/L (136-147); UREA NITROGEN (BUN) 56 mg/dL (9-23); URIC ACID 14.1 mg/dL (3.1-9.2)
[2016-06-15 16:26] VITALS: BP 161/80
[2016-06-15 17:18] LABS: ADD MIUA? YES; BILIRUBIN SMALL; BLOOD SMALL; COLOR AMBER ((YELLOW)); GLUCOSE (STRIP) NEGATIVE; KETONES NEGATIVE; LEUKOCYTES TRACE; NITRITE NEGATIVE; PROTEIN (STRIP) 100; SPECIFIC GRAVITY 1.023 (1.000-1.030)
[2016-06-15 18:15] LABS: AMORPHOUS URATES CRYSTALS 4+; BACTERIA 1+ /HPF; EPITHELIAL CELLS 2+ /HPF; MUCUS NONE SEEN /LPF; RED BLOOD CELLS 0-5 /HPF (0-5)
[2016-06-15 18:24] LABS: UR CREATININE CONCENTRATION 234.5 MG/DL
[2016-06-15 18:41] LABS: UR CREATININE CONCENTRATION 228.7 MG/DL
[2016-06-16 07:04] LABS: HEMATOCRIT 39.4 % (38.0-50.0); MCH 29.5 PG (29.0-34.0); MCHC 35.5 G/DL (30.0-36.0); MCV 82.9 FL (86-99); MEAN PLAT.VOLUME 11.6 uM^3 (9.0-12.4); NRBC (%) 0.3 /100 WBC (0-0); PLATELET COUNT 195 K/uL (156-360); RBC DIS.WIDTH-CV 18.2 % (11.8-14.6); RBC DIS.WIDTH-SD 49.9 % (39-53); RED BLOOD COUNT 4.75 M/uL (4.00-5.50); WHITE BLOOD COUNT 7.8 K/uL (4.1-10.2)
[2016-06-16 07:26] LABS: ANION GAP 14 MEQ/L (2-14); CHLORIDE 101 MEQ/L (99-109); GFR ESTIMATE (CALCULATED) 26 mL/min/; SAMPLE HEMOLYSIS CHECK 1; SAMPLE ICTERIC CHECK 1; SAMPLE LIPEMIA CHECK 0; SODIUM 136 MEQ/L (136-147); UREA NITROGEN (BUN) 60 mg/dL (9-23)
[2016-06-16 07:29] LABS: GLUCOSE 98 mg/dL (70-99); POTASSIUM 4.5 MEQ/L (3.7-5.4)
[2016-06-16 08:20] VITALS: BP 124/62
[2016-06-16 11:38] LABS: INTERNAL CONTROL VALID? YES
[2016-06-16 15:59] LABS: POINT-OF-CARE METER ID UU14174225
[2016-06-16 16:02] VITALS: BP 120/58
[2016-06-16 23:33] VITALS: BP 122/68
[2016-06-17 06:53] LABS: HEMATOCRIT 41.5 % (38.0-50.0); MCH 29.1 PG (29.0-34.0); MCHC 34.9 G/DL (30.0-36.0); MCV 83.3 FL (86-99); MEAN PLAT.VOLUME 11.2 uM^3 (9.0-12.4); NRBC (%) 0.3 /100 WBC (0-0); PLATELET COUNT 213 K/uL (156-360); RBC DIS.WIDTH-CV 18.3 % (11.8-14.6); RBC DIS.WIDTH-SD 50.6 % (39-53); RED BLOOD COUNT 4.98 M/uL (4.00-5.50); WHITE BLOOD COUNT 6.7 K/uL (4.1-10.2)
[2016-06-17 07:19] LABS: ANION GAP 16 MEQ/L (2-14); ANION GAP 17 MEQ/L (2-14); CHLORIDE 99 MEQ/L (99-109); GFR ESTIMATE (CALCULATED) 23 mL/min/; POTASSIUM 4.3 MEQ/L (3.7-5.4); POTASSIUM 4.4 MEQ/L (3.7-5.4); SAMPLE HEMOLYSIS CHECK 0; SAMPLE ICTERIC CHECK 1; SAMPLE LIPEMIA CHECK 0; SODIUM 136 MEQ/L (136-147); SODIUM 137 MEQ/L (136-147); UREA NITROGEN (BUN) 62 mg/dL (9-23); UREA NITROGEN (BUN) 66 mg/dL (9-23)
[2016-06-17 07:21] LABS: GLUCOSE 149 mg/dL (70-99); GLUCOSE 151 mg/dL (70-99)
[2016-06-17 07:34] VITALS: BP 104/67
[2016-06-17 16:00] VITALS: BP 106/68
[2016-06-17 18:41] LABS: CREATINE KINASE 65 IU/L (1-294)
[2016-06-17 19:10] LABS: ADD MIUA? YES; BILIRUBIN NEGATIVE; BLOOD SMALL; GLUCOSE (STRIP) NEGATIVE; KETONES NEGATIVE; LEUKOCYTES NEGATIVE; NITRITE NEGATIVE; PROTEIN (STRIP) 100; SPECIFIC GRAVITY 1.021 (1.000-1.030)
[2016-06-17 19:15] LABS: COLOR DK YELLOW ((YELLOW))
[2016-06-17 19:59] LABS: EPITHELIAL CELLS NONE SEEN /HPF; MUCUS NONE SEEN /LPF; RED BLOOD CELLS 0-5 /HPF (0-5); WHITE BLOOD CELLS 0-5 /HPF (0-5)
[2016-06-17 20:00] LABS: AMORPHOUS URATES CRYSTALS 2+; BACTERIA NONE SEEN /HPF; CASTS PRESENT /LPF; CRYSTALS PRESENT; HYALINE CASTS 0-5 /LPF
[2016-06-17 20:49] LABS: HEMATOCRIT 42.5 % (38.0-50.0); MCV 85.3 FL (86-99)
[2016-06-18] VITALS (14 sets, daily range): BP systolic 80–95; BP diastolic 56–70
[2016-06-18 10:26] LABS: HEMATOCRIT 42.2 % (38.0-50.0); MCH 29.2 PG (29.0-34.0); MCHC 35.1 G/DL (30.0-36.0); MCV 83.4 FL (86-99); MEAN PLAT.VOLUME 12.1 uM^3 (9.0-12.4); NRBC (%) 0.7 /100 WBC (0-0); PLATELET COUNT 151 K/uL (156-360); RBC DIS.WIDTH-CV 19.4 % (11.8-14.6); RBC DIS.WIDTH-SD 51.3 % (39-53); RED BLOOD COUNT 5.06 M/uL (4.00-5.50); WHITE BLOOD COUNT 5.4 K/uL (4.1-10.2)
[2016-06-18 10:48] LABS: ANION GAP 16 MEQ/L (2-14); CHLORIDE 102 MEQ/L (99-109); GFR ESTIMATE (CALCULATED) 22 mL/min/; GLUCOSE 181 mg/dL (70-99); POTASSIUM 4.6 MEQ/L (3.7-5.4); SAMPLE HEMOLYSIS CHECK 0; SAMPLE ICTERIC CHECK 1; SAMPLE LIPEMIA CHECK 0; SODIUM 136 MEQ/L (136-147); UREA NITROGEN (BUN) 67 mg/dL (9-23)
[2016-06-18 11:38] LABS: ADD MIUA? YES; BILIRUBIN SMALL; BLOOD LARGE; COLOR AMBER ((YELLOW)); GLUCOSE (STRIP) NEGATIVE; KETONES NEGATIVE; LEUKOCYTES MODERATE; NITRITE NEGATIVE; PROTEIN (STRIP) 100
[2016-06-18 12:25] LABS: POINT-OF-CARE METER ID UU14174217; POINT-OF-CARE USER ID 606021424
[2016-06-18 12:25] LABS: METH RESISTANT S AUREUS PCR NEGATIVE (NEGATIVE); PROBE CHECK PASS; SPECIMEN PROCESSING CONTROL PASS
[2016-06-18 13:16] LABS: BACTERIA RARE /HPF; BUDDING YEAST 2+; EPITHELIAL CELLS 1+ /HPF; HYALINE CASTS TNTC /LPF; MUCUS 1+ /LPF; RED BLOOD CELLS TNTC /HPF (0-5); UCUL ADDED? YES; WHITE BLOOD CELLS TNTC /HPF (0-5); WHITE BLOOD CELLS CLUMP MANY /HPF (0-5)
[2016-06-19 03:22] LABS: MCV 82.7 FL (86-99)
[2016-06-27 04:05] VITALS: BP 00/00
== END 2016-07-02 21:25 | DRG 291 ==
LOC: EME 10:07 → 5EAST 13:21 → 4SOUTH 13:21 → EDOF 13:21 → 4SOUTH 17:23 → 5SOUTH 05-20 18:14 → 4WEST 06-18 09:09 → 5EAST 06-18 20:10
PROVIDERS: Emergency Medicine; Hospitalist; Internal Medicine; Internal Medicine Critical Care Medicine; Internal Medicine Nephrology; Internal Medicine Pulmonary Disease; Nurse Practitioner Family; Physician Assistant Medical
PROC: 0W993ZZ Drainage of Right Pleural Cavity, Percutaneous Approach (ICD-10-PCS; principal; 2016-05-13)
DX: I13.0 Hypertensive heart and chronic kidney disease with heart failure and stage 1 through stage 4 chronic kidney disease, or unspecified chronic kidney disease (principal); I50.23 Acute on chronic systolic (congestive) heart failure; J18.9 Pneumonia, unspecified organism; Y95 Nosocomial condition; I42.0 Dilated cardiomyopathy; J90 Pleural effusion, not elsewhere classified; J96.01 Acute respiratory failure with hypoxia; A04.7 Enterocolitis due to Clostridium difficile; I48.0 Paroxysmal atrial fibrillation; E87.2 Acidosis; K92.1 Melena; N17.0 Acute kidney failure with tubular necrosis; I69.354 Hemiplegia and hemiparesis following cerebral infarction affecting left non-dominant side; R33.9 Retention of urine, unspecified; E11.22 Type 2 diabetes mellitus with diabetic chronic kidney disease; E11.65 Type 2 diabetes mellitus with hyperglycemia; E66.01 Morbid (severe) obesity due to excess calories; G47.33 Obstructive sleep apnea (adult) (pediatric); E78.5 Hyperlipidemia, unspecified; N18.3 Chronic kidney disease, stage 3 (moderate); K21.9 Gastro-esophageal reflux disease without esophagitis; K59.00 Constipation, unspecified; F32.9 Major depressive disorder, single episode, unspecified; I95.9 Hypotension, unspecified; Z68.41 Body mass index [BMI] 40.0-44.9, adult; Z79.4 Long term (current) use of insulin; Z86.711 Personal history of pulmonary embolism; Z86.718 Personal history of other venous thrombosis and embolism; Z79.01 Long term (current) use of anticoagulants; Z91.19 Patient's noncompliance with other medical treatment and regimen; Z66 Do not resuscitate; Z79.82 Long term (current) use of aspirin
CPT/HCPCS: 31720; 71010; 71020; 71250; 74000; 76705; 76770; 80048; 80048 91; 80053; 80069; 80202; 81003; 82040; 82272; 82550; 82570; 82945; 82948; 83605; 83615 91; 83690; 83735; 83880; 83986 90; 84100; 84145 90; 84156; 84157; 84300; 84484; 84550; 85014; 85018; 85025; 85027; 85610; 85730; 87040; 87070; 87075; 87077; 87086; 87205; 87449; 87493; 87502; 87641; 88108; 89051; 89190; 93005; 93306; 93971; 94640; 94667; 94668; 94760; 94799; 97530 GO; 97530 GP; 99202; 99281; 99285; J1650; J1815; J1956; J2060; J2270; J2405; J2543; J3370; J7030; J7040; J7050; J7120; P9045; S0030